=== PATIENT | female | born 1940 | race Caucasian/White ===

== ENCOUNTER 2018-06-16 17:53 | Inpatient (IN) | payer MEDICAID, MEDICARE ==
[~2018-06-16] VITALS: Ht 154.9 cm; Wt 46.3 kg
[2018-06-16 19:46] LABS: BASOPHILS % 0.7 % (0.0-2.0); EOSINOPHILS % 4.9 % (0.0-5.0); HEMATOCRIT. 41.1 % (36.0-48.0); HEMOGLOBIN. 13.9 g/dL (12.0-16.0); LYMPHOCYTES % 25.2 % (20.0-50.0); MEAN CORPUSCULAR HEMOGLOBIN 34.9 pg (28.0-32.0); MEAN CORPUSCULAR VOLUME 103.5 fL (81.0-99.0); MEAN PLATELET VOLUME 9.2 fl (7.4-10.4); MONOCYTES % 5.6 % (2.0-8.0); NEUTROPHILS % 63.6 % (40.0-76.0); PLATELET 163 x1000/uL (130-400); RED BLOOD CELL COUNT 3.97 mill/uL (4.2-5.4); RED CELL DISTRIBUTION WIDTH 14.4 % (11.6-14.6)
[2018-06-16 19:50] LABS: CHLORIDE 106 mEq/L (98-107)
[2018-06-16] MEDS ORDERED: LEVOFLOXACIN 750MG PREMIX 150 ML IV ONE (20:15)
[2018-06-17] VITALS (7 sets, daily range): BP systolic 113–148; BP diastolic 53–67
[2018-06-17] MEDS ORDERED: CLOP75TA33 PO (01:26)
[2018-06-17] MEDS ORDERED: BRIM5DRO6 EACHEYE (01:26)
[2018-06-17] MEDS ORDERED: OMEG100017 PO (01:26)
[2018-06-17] MEDS ORDERED: LABE100T5 PO (01:26)
[2018-06-17] MEDS ORDERED: ATOR40TA70 PO (01:26)
[2018-06-17] MEDS ORDERED: MULT-1146 PO (01:26)
[2018-06-17] MEDS ORDERED: AMLO5TAB88 PO (01:26)
[2018-06-17] MEDS ORDERED: CYAN50008 MT (01:26)
[2018-06-17] MEDS ORDERED: POTA99TA4 PO (01:26)
[2018-06-17] MEDS ORDERED: IBUP-1653 PO (01:26)
[2018-06-17] MEDS ORDERED: ACET325S17 PO (01:26)
[2018-06-17] MEDS ORDERED: LEVO50TA8 PO (01:26)
[2018-06-17] MEDS ORDERED: CALC-816 PO (01:26)
[2018-06-17] MEDS ORDERED: TIMO5DRO32 EACHEYE (01:26)
[2018-06-17] MEDS ORDERED: LATA2.5D2 EACHEYE (01:26)
[2018-06-17] MEDS ORDERED: ALEN70TA46 PO ×2 (01:26)
[2018-06-17] MEDS ORDERED: ASPI-986 PO (01:26)
[2018-06-17] MEDS ORDERED: ACETAMINOPHEN 325MG TABLET PO PRN (02:15)
[2018-06-17] MEDS: SODIUM CHLORIDE 0.9% INJ 3ML FLUSH IVF SCH ×3 (06:33→21:08)
[2018-06-17] MEDS: LEVOTHYROXINE SODIUM 50MCG TABLET PO SCH (06:33)
[2018-06-17] MEDS: ENOXAPARIN 40MG/0.4ML SYR SUBCUT SCH (09:18)
[2018-06-17] MEDS: AMLODIPINE 5MG TABLET PO SCH (09:18)
[2018-06-17] MEDS: LABETALOL HCL 200MG TABLET PO SCH ×2 (09:19→21:07)
[2018-06-17] MEDS: ASPIRIN 81MG EC TABLET PO SCH (09:19)
[2018-06-17] MEDS: CLOPIDOGREL 75MG TABLET PO SCH (09:19)
[2018-06-17 10:24] LABS: BASOPHILS % 0.5 % (0.0-2.0); EOSINOPHILS % 6.5 % (0.0-5.0); HEMATOCRIT. 38.2 % (36.0-48.0); LYMPHOCYTES % 22.3 % (20.0-50.0); MEAN CORPUSCULAR HEMOGLOBIN 35.2 pg (28.0-32.0); MEAN CORPUSCULAR VOLUME 103.2 fL (81.0-99.0); MEAN PLATELET VOLUME 8.6 fl (7.4-10.4); MONOCYTES % 5.2 % (2.0-8.0); NEUTROPHILS % 65.5 % (40.0-76.0); PLATELET 147 x1000/uL (130-400); RED CELL DISTRIBUTION WIDTH 14.4 % (11.6-14.6)
[2018-06-17 11:03] LABS: FOLIC ACID (FOLATE) SERUM >20 ng/mL ng/mL (>5.38)
[2018-06-17 11:14] LABS: VITAMIN B12 SERUM 1954 pg/mL (211-911)
[2018-06-17 11:36] LABS: FERRITIN 42 ng/mL (10-291)
[2018-06-17] MEDS ORDERED: IOHEXOL-350 100 ML BOTTLE ONE (13:08)
[2018-06-17 17:15] LABS: T4 FREE 1.11 ng/dL (0.76-1.46)
[2018-06-17 17:32] LABS: CLARITY URINE CLOUDY (CLEAR); COLOR URINE YELLOW (YELLOW); KETONES URINE NEGATIVE (NEGATIVE); LEUKOCYTE ESTERASE URINE NEGATIVE (NEGATIVE); NITRITE URINE NEGATIVE (NEGATIVE); OCCULT BLOOD URINE 3+ (NEGATIVE); PROTEIN URINE NEGATIVE (NEGATIVE); SPECIFIC GRAVITY URINE 1.051 (1.005-1.030); UROBILINOGEN URINE 0.2 E.U./dL (0.2-1.0)
[2018-06-17 17:45] LABS: *AMPHETAMINES SCREEN URINE NEGATIVE (NEGATIVE); *BARBITURATES SCREEN URINE NEGATIVE (NEGATIVE); *BENZODIAZEPINES SCREEN URINE NEGATIVE (NEGATIVE)
[2018-06-17 17:46] LABS: *COCAINE SCREEN URINE NEGATIVE (NEGATIVE); CANNABINOID URINE SCREEN NEGATIVE (NEGATIVE); METHADONE URINE SCREEN NEGATIVE (NEGATIVE); OPIATES URINE SCREEN PRESUMTIVE POSITIVE (NEGATIVE); PHENCYCLIDINE URINE SCREEN NEGATIVE (NEGATIVE)
[2018-06-17 18:12] LABS: D-DIMER 1.39 mg/L FEU (<0.50); INR 1.2
[2018-06-17] MEDS: LATANOPROST 0.005% OPHTH DROPS 2.5ML EACHEYE SCH (21:07)
[2018-06-17] MEDS: ATORVASTATIN CALCIUM 40MG TABLET PO SCH (21:07)
[2018-06-18] VITALS: BP 129/62
[2018-06-18 04:00] VITALS: BP 134/75
[2018-06-18] MEDS: LEVOTHYROXINE SODIUM 50MCG TABLET PO SCH (05:54)
[2018-06-18] MEDS: SODIUM CHLORIDE 0.9% INJ 3ML FLUSH IVF SCH ×3 (05:54→21:27)
[2018-06-18 06:30] LABS: HEMATOCRIT 33.4 % (36.0-48.0); HEMOGLOBIN 11.5 g/dL (12.0-16.0); MEAN CORPUSCULAR HEMOGLOBIN 35.5 pg (28.0-32.0); MEAN CORPUSCULAR VOLUME 102.7 fL (81.0-99.0); PLATELET 144 x1000/uL (130-400); RED BLOOD CELL COUNT 3.25 mill/uL (4.2-5.4); RED CELL DISTRIBUTION WIDTH 14.1 % (11.6-14.6)
[2018-06-18] MEDS: ASPIRIN 81MG EC TABLET PO SCH (09:04)
[2018-06-18] MEDS: CLOPIDOGREL 75MG TABLET PO SCH (09:05)
[2018-06-18] MEDS: LABETALOL HCL 200MG TABLET PO SCH ×2 (09:06→21:26)
[2018-06-18] MEDS: AMLODIPINE 5MG TABLET PO SCH (09:06)
[2018-06-18] MEDS: ENOXAPARIN 40MG/0.4ML SYR SUBCUT SCH (09:06)
[2018-06-18 12:00] VITALS: BP 132/55
[2018-06-18] MEDS ORDERED: GADOBENATE DIMEGLUMINE 529 MG/ML 10ML IV ONE (14:19)
[2018-06-18 16:00] VITALS: BP 131/63
[2018-06-18 20:00] VITALS: BP 130/57
[2018-06-18] MEDS: ATORVASTATIN CALCIUM 40MG TABLET PO SCH (21:24)
[2018-06-18] MEDS: FUROSEMIDE 40MG/4ML VIAL IVP SCH (21:27)
[2018-06-18] MEDS: LATANOPROST 0.005% OPHTH DROPS 2.5ML EACHEYE SCH (21:27)
[2018-06-19] VITALS: BP 106/59
[2018-06-19] MEDS: ALBUTEROL (0.083%) 2.5MG/3ML NEB HHN SCH ×4 (02:07→14:00)
[2018-06-19 04:00] VITALS: BP 119/53
[2018-06-19] MEDS: SODIUM CHLORIDE 0.9% INJ 3ML FLUSH IVF SCH ×2 (05:58→14:21)
[2018-06-19] MEDS: LEVOTHYROXINE SODIUM 50MCG TABLET PO SCH (05:58)
[2018-06-19 08:00] VITALS: BP 136/55
[2018-06-19] MEDS: FUROSEMIDE 40MG/4ML VIAL IVP SCH (08:52)
[2018-06-19] MEDS: AMLODIPINE 5MG TABLET PO SCH (08:53)
[2018-06-19] MEDS: ENOXAPARIN 40MG/0.4ML SYR SUBCUT SCH (08:53)
[2018-06-19] MEDS: LABETALOL HCL 200MG TABLET PO SCH (08:53)
[2018-06-19] MEDS: CLOPIDOGREL 75MG TABLET PO SCH (08:53)
[2018-06-19] MEDS: ASPIRIN 81MG EC TABLET PO SCH (08:53)
[2018-06-19] MEDS ORDERED: ALENDRONATE SODIUM 35MG TABLET PO SCH (09:00)
[2018-06-19 12:00] VITALS: BP 108/50
[2018-06-19 16:00] VITALS: BP 126/81
[2018-06-19 19:08] VITALS: BP 126/81
[2018-06-20] MEDS ORDERED: ENOXAPARIN 30MG/0.3ML SYR SUBCUT SCH (09:00)
== END 2018-06-19 19:45 | disposition home or self-care (01) | DRG 45 ==
LOC: ER 20:25 → 5WST 20:52 → EDBEDREQ 20:54 → EDBEDREQTM 20:54 → ENRESERV 23:25 → CANRESERV 23:25 → ENRESERV 23:45
PROVIDERS: ADMIT Internal Medicine; ATTEND Internal Medicine
DX: I63.9 Cerebral infarction, unspecified (principal); I50.43 Acute on chronic combined systolic (congestive) and diastolic (congestive) heart failure; I31.3 Pericardial effusion (noninflammatory); J44.1 Chronic obstructive pulmonary disease with (acute) exacerbation; D64.9 Anemia, unspecified; I11.0 Hypertensive heart disease with heart failure; F03.90 Unspecified dementia, unspecified severity, without behavioral disturbance, psychotic disturbance, mood disturbance, and anxiety; E03.9 Hypothyroidism, unspecified; E78.00 Pure hypercholesterolemia, unspecified; E78.5 Hyperlipidemia, unspecified; Z90.49 Acquired absence of other specified parts of digestive tract; M81.0 Age-related osteoporosis without current pathological fracture; I65.29 Occlusion and stenosis of unspecified carotid artery; Z79.82 Long term (current) use of aspirin; I65.22 Occlusion and stenosis of left carotid artery; I08.0 Rheumatic disorders of both mitral and aortic valves
CPT/HCPCS: 36415; 70490; 70544; 70547; 70551; 71045; 71275; 80048; 80061; 80305; 82607; 82728; 82746; 83036; 83540; 83550; 83880; 84439; 84443; 84481; 84484; 85027; 85379; 85651; 86038; 93005; 93306; 93880; 94640; 96365; 96366; 97162; 97166; 99285; A9577; J1650; J1940; J1956; J7611; Q9967